=== PATIENT | female | born 1940 | race Caucasian/White ===

== ENCOUNTER 2018-10-21 02:54 | Emergency (ER) | payer MEDICARE ==
[~2018-10-21] VITALS: Ht 165.1 cm; Wt 77.2 kg
[2018-10-21 02:57] VITALS: BP 145/81
[2018-10-21] MEDS ORDERED: IBUPROFEN 800 MG TABLET ONE (03:47)
[2018-10-21] MEDS ORDERED: DIAZEPAM 5 MG TABLET ONE (03:48)
[2018-10-21] MEDS ORDERED: DIAZEPAM 5 MG TABLET PO ONE (04:00)
[2018-10-21] MEDS ORDERED: IBUPROFEN 200 MG TABLET PO ONE (04:00)
--- NOTE | 2018-10-21 05:19 | NUR ---
AT BEDSIDE FOR ASSESSMENT.
== END 2018-10-21 05:39 ==
LOC: ED 03:44
DX: M79.652 Pain in left thigh (principal); M62.838 Other muscle spasm; I10 Essential (primary) hypertension; E07.9 Disorder of thyroid, unspecified; E78.5 Hyperlipidemia, unspecified
CPT/HCPCS: 99284

== ENCOUNTER → 2019-08-12 | Outpatient (CLI) | payer MEDICARE | END | disposition home or self-care (01) | LOC: RAD 16:02 | PROVIDERS: ATTEND Internal Medicine | DX: M25.471 Effusion, right ankle (principal); M79.89 Other specified soft tissue disorders; Z87.891 Personal history of nicotine dependence ==